=== PATIENT | male | born 1950 | race Hispanic/Latino ===

== ENCOUNTER 2018-03-06 12:05 | Emergency (ER) | payer SELFPAY ==
[~2018-03-06] VITALS: Ht 167.6 cm; Wt 94.3 kg
[2018-03-06] MEDS ORDERED: PIPER-TAZ 3.375 GM 50 ML IV STA (12:46)
[2018-03-06] MEDS ORDERED: CLINDAMYCIN 600MG / 50ML 50 ML IV ONE (13:00)
[2018-03-06] MEDS ORDERED: VANCOMYCIN 1GM/NS 250 ML 250 ML IV ONE (13:00)
[2018-03-06 13:10] LABS: BASOPHILS % 0.2 % (0.0-1.0); EOSINOPHILS # (AUTO) 0.1 (0.0-0.4); EOSINOPHILS % 1.5 % (0.0-6.0); HEMATOCRIT 43.1 % (38.2-49.6); HEMOGLOBIN 14.6 g/dL (14.0-18.0); LYMPHOCYTES # (AUTO) 2.2 (1.0-3.2); LYMPHOCYTES % 24.4 % (18.0-39.1); MEAN CORPUSCULAR HEMOGLOBIN 30.9 pg (28-32); MEAN CORPUSCULAR HGB CONC 33.9 g/dL (31-35); MEAN CORPUSCULAR VOLUME 91.1 fL (81-99); MONOCYTES % 11.5 % (4.4-11.3); NEUTROPHILS # (AUTO) 5.5 (2.1-6.9); NEUTROPHILS % 62.1 % (38.7-80.0); PLATELET COUNT 278 x10e3/uL (140-360); RED BLOOD COUNT 4.73 x10e6/uL (4.3-5.7); RED CELL DISTRIBUTION WIDTH 13.6 % (11.7-14.4)
[2018-03-06 13:21] LABS: INR 1.05; PROTHROMBIN TIME 12.9 seconds (11.9-14.5)
[2018-03-06 13:22] LABS: PARTIAL THROMBOPLASTIN TIME 30.4 seconds (23.8-35.5)
[2018-03-06 13:31] LABS: ALANINE AMINOTRANSFERASE 31 IU/L (0-55); ALBUMIN 3.9 g/dL (3.5-5.0); ALKALINE PHOSPHATASE 76 IU/L (40-150); AMYLASE 66 U/L (25-125); ANION GAP 13.5 mmol/L (8-16); BLOOD UREA NITROGEN 12 mg/dL (7-26); BUN/CREATININE RATIO 13 (6-25); CALCIUM 9.7 mg/dL (8.4-10.2); CARBON DIOXIDE 28 mmol/L (22-29); CHLORIDE 101 mmol/L (98-107); CREATININE, SERUM 0.92 mg/dL (0.72-1.25); EST GLOMERULAR FILTRATION RATE > 60 ML/MIN (60-); GLUCOSE 102 mg/dL (74-118); LIPASE 46 U/L (8-78); POTASSIUM 3.5 mmol/L (3.5-5.1); SODIUM 139 mmol/L (136-145)
--- NOTE | 2018-03-06 13:45 | Diagnostic Imaging Report ---
PROCEDURE:X-RAY RIGHT FOOT, COMPLETE COMPARISON:None. INDICATIONS:RULE OUT FB FINDINGS: The osseous structures are intact and normal in morphology. No focal osseous lesions. No radiopaque foreign bodies in the soft tissues. CONCLUSION: No radiopaque foreign bodies or osseous abnormalities. Dictated by: Edith Wyatt M.D. on 03/06/2018 at 13:49 Electronically approved by: Edith Wyatt M.D. on 03/06/2018 at 13:49
[2018-03-06] MEDS ORDERED: CLINDAMYCIN HC150 MG PO (15:07)
== END 2018-03-06 15:18 | disposition home or self-care (01) ==
LOC: ER 12:05
DX: M79.661 Pain in right lower leg (principal); L03.115 Cellulitis of right lower limb; Y93.H2 Activity, gardening and landscaping
CPT/HCPCS: 36415; 80053; 82150; 83690; 85025; 85610; 85730; 99284